=== PATIENT | male | born 2000 | race Hispanic/Latino ===

== ENCOUNTER 2020-08-23 08:46 | Emergency (ER) | payer OTHER ==
[~2020-08-23] VITALS: Ht 175.3 cm; Wt 68.1 kg
[2020-08-23 09:30] VITALS: BP 138/91
[2020-08-23] MEDS ORDERED: WELLBUTRIN150 M1 PO (09:36)
== END 2020-08-23 09:30 | disposition left against medical advice (07) | DRG 918 ==
LOC: ED 08:46
DX: T43.291A Poisoning by other antidepressants, accidental (unintentional), initial encounter (principal); F32.9 Major depressive disorder, single episode, unspecified; F17.210 Nicotine dependence, cigarettes, uncomplicated; Z91.19 Patient's noncompliance with other medical treatment and regimen